=== PATIENT | female | born 1950 | race Caucasian/White ===

== ENCOUNTER → 2017-07-12 | Outpatient (CLI) | payer OTHER | LOC: FIMAGING 10:46 | PROVIDERS: ATTEND Internal Medicine | DX: Z12.31 Encounter for screening mammogram for malignant neoplasm of breast (principal) ==

== ENCOUNTER → 2018-06-10 | Outpatient (CLI) | payer OTHER | LOC: EMCIMAGING 15:18 | PROVIDERS: ATTEND Internal Medicine | DX: M51.34 Other intervertebral disc degeneration, thoracic region (principal) ==